=== PATIENT | female | born 1985 | race Caucasian/White ===

== ENCOUNTER 2018-08-08 11:16 | Day surgery (SDC) | payer BC ==
[~2018-08-08] VITALS: Ht 154.9 cm; Wt 54.9 kg
[2018-08-08] MEDS ORDERED: ceFAZolin INJECTION 1,000 MG VIAL ONE (11:27)
[2018-08-08] MEDS ORDERED: NS (IVPB) 50 ML ONE (11:27)
[2018-08-08] MEDS ORDERED: metroNIDAZOLE 500MG/100ML IVPB 100 ML ONE (11:27)
[2018-08-08 11:40] VITALS: BP 99/69
[2018-08-08] MEDS ORDERED: metroNIDAZOLE 500MG/100ML IVPB 100 ML IV ONE (12:00)
[2018-08-08] MEDS ORDERED: ceFAZolin INJECTION 1,000 MG in NS (IVPB) 50 ML IV ONE (12:00)
[2018-08-08] MEDS ORDERED: proPOfol 200 MG/20 ML (DIPRIVAN) VIAL IV ONE ×2 (12:04→13:37)
[2018-08-08] MEDS ORDERED: DEXAMETHASONE 10 MG/ML (DECADRON) 1 ML VIAL ONE (12:04)
[2018-08-08] MEDS ORDERED: MIDAZOLAM 2 MG/2 ML (VERSED) VIAL ONE (12:04)
[2018-08-08] MEDS ORDERED: LIDOCAINE PF 2% 5 ML (XYLOCAINE) VIAL ONE (12:04)
[2018-08-08] MEDS ORDERED: ONDANSETRON 4 MG/2 ML (SDV) Z0FRAN ONE (12:04)
[2018-08-08] MEDS ORDERED: SEVOFLURANE (ULTANE) 15 ML INHAL SOLN ONE (12:04)
[2018-08-08] MEDS ORDERED: fentaNYL INJECTION 100 MCG/2 ML AMP ONE (12:04)
[2018-08-08] MEDS ORDERED: MONT10TA21 PO (12:16)
[2018-08-08] MEDS ORDERED: LACTATED RINGERS 1,000 ML IV PRN (12:33)
--- NOTE | 2018-08-08 12:49 | Progress Note-Pre Operative ---
Pre-Operative Progress Note H&P Reviewed The H&P was reviewed, patient examined and no changes noted. Date Seen by Provider: Aug 08, 2018 Time Seen by Provider: 12:45 Date H&P Reviewed: Aug 08, 2018 Time H&P Reviewed: 12:45 Pre-Operative Diagnosis: missed CALIXTO STEARNS DO Aug 08, 2018 12:49
[2018-08-08] MEDS ORDERED: KETOROLAC 30 MG/ML VIAL ONE (13:40)
[2018-08-08] MEDS ORDERED: DOXYCYCLINE 100 MG (VIBRAMYCIN) TABLET PO ONE (13:45)
[2018-08-08] MEDS ORDERED: KETOROLAC 30 MG/ML VIAL IVP ONE (13:45)
[2018-08-08] MEDS ORDERED: ACETAMINOPHEN 500 MG TAB (TYLENOL) PO PRN (13:45)
[2018-08-08] MEDS ORDERED: METHYLERGONOVINE 0.2 MG/ML (METHERGINE) AMP IM ONE (13:45)
--- NOTE | 2018-08-08 13:51 | Operative Report ---
Operative Report Date of Procedure/Surgery Aug 08, 2018 Surgeon (s) CALIXTO STEARNS DO Room Server (s): NA Post-Operative Diagnosis missed Procedure Performed Suction dilation and curettage Description of Procedure Estimated blood loss (mL): 250 Specimen(s) collected/removed products of conception Description of the Procedure With informed consent the patient was taken to the operating room where general anesthesia was found to be adequate. She was prepped and draped in the usual sterile fashion in the dorsolithotomy position. A speculum was placed in the vagina, The cervix was not dilated. The bladder was drained of 100 ml of clear , yellow urine. The anterior lip of the cervix was grasped with a tenaculum. The uterus was gently sound to 8 cm. I now dilated the cervix gently with Giraldo curved cervical dilators. I then inserted a 8 curved suction curette and a gentle curette was done. This was followed with a sharp curette until a gritty texture was heard. A follow up suction revealed minimal bleeding. The instruments were removed from the cervix and vagina and the patient was awakened and taken to recovery in stable condition. Sponge, lap, needle and instrument counts were correct times two. Findings of the Procedure Moderate amounts of products of conception Allergies and Home Medications Allergies Coded Allergies: No Known Drug Allergies (Unverified , 08/07/18) Home Medications Montelukast Sodium 10 Mg Tablet, 10 MG PO DAILY, (Reported) Patient Home Medication List Home Medication List Reviewed: Yes CALIXTO STEARNS DO Aug 08, 2018 13:51
[2018-08-08] MEDS ORDERED: OXYC-529 PO (13:54)
[2018-08-08] MEDS ORDERED: ACET-77 PO (13:54)
[2018-08-08] MEDS ORDERED: IBUP-844 PO (13:54)
--- NOTE | 2018-08-08 13:56 | Discharge Inst-Women's Service ---
Discharge Inst-Women's Serv Depart Medication/Instructions New, Converted or Re-Newed RX: RX on Chart Instructions expect light bleeding for up to two weeks Final Diagnosis missed Consults/Follow Up Additional Follow Up: Yes (2-[address] Stearns) Activity Activity: Activity as Tolerated Driving Instructions: No Driving for 24 Hours NO SMOKING: NO SMOKING Nothing Inside Vagina: No Douching, No Cando, No Tampons Diet Discharge Diet: No Restrictions Symptoms to Report to : Swelling Increased, Bleeding Excessive, Pain Increased, Fever Over 101 Degrees F, Vaginal Bleeding Increase, Cramps in Feet or Legs, Vaginal Discharge Foul For Any Problems or Questions: Contact Your Physician CALIXTO STEARNS DO Aug 08, 2018 13:56
[2018-08-08] MEDS ORDERED: HYDROmorphone 2 MG/ML VIAL (DILAUDID) IV ONE (14:00)
[2018-08-08] MEDS ORDERED: ONDANSETRON 4 MG/2 ML (SDV) Z0FRAN IVP PRN (14:00)
[2018-08-08] MEDS ORDERED: HYDROmorphone 2 MG/ML VIAL (DILAUDID) ONE (14:09)
[2018-08-08] MEDS ORDERED: METHYLERGONOVINE 0.2 MG/ML (METHERGINE) AMP ONE (14:16)
[2018-08-08 14:50] VITALS: BP 102/67
[2018-08-08 15:20] VITALS: BP_SYST 102; BP_SYST 99; BP_DIAS 58; BP_DIAS 67
[2018-08-08] MEDS ORDERED: IBUPROFEN 600 MG (MOTRIN) TAB PO SCH (18:00)
== END 2018-08-08 15:40 | disposition home or self-care (01) ==
LOC: SDC 11:16
PROVIDERS: ATTEND Obstetrics & Gynecology
DX: O02.1 Missed abortion (principal); J45.909 Unspecified asthma, uncomplicated; F17.210 Nicotine dependence, cigarettes, uncomplicated
CPT/HCPCS: 87081